=== PATIENT | male | born 2000 | race Hispanic/Latino ===

== ENCOUNTER 2022-10-01 13:55 | Emergency (ER) | payer BC ==
[~2022-10-01] VITALS: Ht 172.7 cm; Wt 68.0 kg
[2022-10-01] MEDS ORDERED: MUCINEX600 MG PO (16:27)
[2022-10-01] MEDS ORDERED: IBUPROFEN200 M1 PO (16:28)
== END 2022-10-01 17:36 | disposition home or self-care (01) ==
LOC: ED 13:55
DX: B34.9 Viral infection, unspecified (principal)
CPT/HCPCS: 87880; 99283